=== PATIENT | female | born 1990 | race Caucasian/White ===

== ENCOUNTER 2023-12-16 20:50 | Emergency (ER) | payer BC, OTHER ==
[2023-12-16 21:15] VITALS: BP 129/83; PULSE 80; RESP 17; TEMP 99.2; BMI 28.8
[2023-12-16] MEDS ORDERED: IBUPROFEN 600 MG TABLET (FP) PO ONE (21:41)
[2023-12-16] MEDS ORDERED: AMOX TR/POT CLAV 875MG/125MG TABLETS (FP) ONE (21:42)
[2023-12-16] MEDS: AMOX TR/POT CLAV 875MG/125MG TABLETS (FP) PO ONE (21:49)
[2023-12-16] MEDS: IBUPROFEN 600 MG TABLET (FP) PO ONE (21:49)
== END 2023-12-16 22:01 | disposition home or self-care (01) ==
LOC: FER 20:50
DX: H66.91 Otitis media, unspecified, right ear (principal); H92.01 Otalgia, right ear
CPT/HCPCS: 99283-25